=== PATIENT | male | born 1960 | race African-American/Black ===

== ENCOUNTER 2017-04-26 11:42 | Emergency (ER) | payer SELFPAY ==
[~2017-04-26] VITALS: Ht 182.9 cm; Wt 93.0 kg
[2017-04-26] MEDS ORDERED: OXYCODONE HCL/ACETAMINOPHEN 5/325MG TABLET PO ONE (14:00)
[2017-04-26] MEDS ORDERED: ALBUTEROL (0.083%) 2.5MG/3ML NEB HHN STA (14:04)
[2017-04-26 15:24] VITALS: BP 141/78
== END 2017-04-26 15:37 | disposition home or self-care (01) ==
LOC: ER 11:42
DX: R07.1 Chest pain on breathing (principal); R03.0 Elevated blood-pressure reading, without diagnosis of hypertension; J43.9 Emphysema, unspecified; M10.9 Gout, unspecified; F17.210 Nicotine dependence, cigarettes, uncomplicated; Z71.6 Tobacco abuse counseling
CPT/HCPCS: 71045; 93005; 94640; 99284; J7611; Z7610